=== PATIENT | female | born 1960 | race Caucasian/White ===

== ENCOUNTER 2017-05-03 10:12 | Day surgery (SDC) | payer MEDICAID ==
[~2017-05-03 10:12] MED LIST: Gentamicin 40 MG/ML 2 ML Vial ONE; Midazolam 1 MG/ML 2 ML SDV ONE; Propofol 200 MG/20 ML SDV ONE; fentaNYL 100 MCG/2 ML SDV ONE
[2017-05-03] MEDS ORDERED: Scopolamine 1.5 MG Transdermal Patch TOP SCH (10:45)
[2017-05-03] MEDS ORDERED: ceFAZolin 2 GM in Sodium Chloride 0.9% 50 ML IV ONE (10:45)
[2017-05-03] MEDS ORDERED: Gabapentin 300 MG Cap PO ONE (10:45)
[2017-05-03] MEDS ORDERED: Ketamine 500 MG/5 ML MDV IV SCH (11:00)
[2017-05-03] MEDS ORDERED: Ropivacaine 49.25 ML, Ketorolac 30 MG, EPINEPHrine 0.5 MG, cloNIDine 80 MCG, Sodium Chl... INJECT ONE ×5 (11:00)
[2017-05-03] MEDS: Lactated Ringers 1,000 ML IV SCH ×2 (11:24→22:34)
[2017-05-03] MEDS ORDERED: Povidone-Iodine 10% Soln 118.25 ML Bottle ONE (12:41)
[2017-05-03] MEDS: Tranexamic Acid 840 MG in Sodium Chloride 0.9% 50 ML IV SCH ×2 (13:18→18:54)
[2017-05-03] MEDS ORDERED: Lactated Ringers 1,000 ML ONE (13:22)
[2017-05-03] MEDS ORDERED: Propofol 200 MG/20 ML SDV ONE (13:38)
[2017-05-03] MEDS ORDERED: diphenhydrAMINE 50 MG/ML SDV IVPUSH PRN (14:33)
[2017-05-03] MEDS ORDERED: Naloxone 0.4 MG/ML SDV IVPUSH PRN (14:33)
[2017-05-03] MEDS ORDERED: Ketorolac 30 MG/ML SDV IVPUSH PRN (14:33)
[2017-05-03] MEDS ORDERED: Magnesium Hydroxide 400 MG/5 ML Susp 30 ML Cup PO PRN (14:33)
[2017-05-03] MEDS ORDERED: Bisacodyl 5 MG Tab PO PRN (14:33)
[2017-05-03] MEDS ORDERED: Docusate Sodium 100 MG Cap PO PRN (14:33)
[2017-05-03] MEDS ORDERED: Aluminum Hydroxide/Magnesium Hydroxide/Simethicone Susp 30 ML Cup PO PRN (14:33)
[2017-05-03] MEDS ORDERED: Sennosides 8.6 MG Tab PO PRN (14:33)
[2017-05-03] MEDS ORDERED: Zolpidem 5 MG Tab PO PRN (14:33)
[2017-05-03] MEDS ORDERED: traMADol 50 MG Tab PO PRN (14:33)
[2017-05-03] MEDS ORDERED: oxyCODONE 5 MG Tab PO PRN (14:37)
[2017-05-03] MEDS ORDERED: Acetaminophen 1,000 MG in Premix Bag 1 BAG IV ONE (15:15)
[2017-05-03] MEDS: Diazepam 5 MG Tab PO PRN (16:02)
[2017-05-03] MEDS: Ondansetron 4 MG/2 ML SDV IVPUSH PRN (16:43)
[2017-05-03] MEDS ORDERED: Meperidine PF 75 MG/ML Syringe IM ONE (16:45)
[2017-05-03] MEDS: SCOPOLAMINE PATCH CHECK TOP SCH (18:03)
--- NOTE | 2017-05-03 21:04 | OR ---
DATE OF PROCEDURE: 05/03/2017 PREOPERATIVE DIAGNOSIS: Right knee primary osteoarthritis. POSTOPERATIVE DIAGNOSIS: Right knee primary osteoarthritis. PROCEDURE: Right knee medial compartment arthroplasty. SHAKER REPAIRER: MIQUEL Guerrero. ANESTHESIA: Spinal plus conscious sedation. FLUID: Lactated Ringer solution. ESTIMATED BLOOD LOSS: 25 mL. COMPLICATIONS: None. SPECIMEN: None. DISCHARGE DISPOSITION: Stable to PACU. INSTRUMENTATION: Brooks partial knee medium-size femur, size C right tibial tray and 4 mm thick medium size anatomic meniscal bearing polyethylene. INDICATION FOR THE PROCEDURE: The patient is well known to me. She was seen preoperatively in clinic. She failed nonoperative treatment. Preoperative imaging confirmed the above- mentioned diagnosis. Risks and benefits of the procedure were explained to the patient. Informed consent was obtained. DESCRIPTION OF PROCEDURE: The patient was seen preoperatively by myself, the anesthesia staff in the preop holding area where the operative site was marked. She was brought to the operative suite by the anesthesia staff where spinal anesthetic and conscious sedation was administered. The right thigh had a well-padded tourniquet placed that was placed into a hip echevarria. The left lower extremity was placed into a stirrup. The right lower extremity was then prepped and draped in a sterile manner. Time-out was called identifying the correct patient, correct procedure, the correct site, and antibiotics had been in with an appropriate period of time. The right lower extremity was exsanguinated. Tourniquet was raised to 300 mmHg for 36 minutes and let down during cementing. Incision was made 3 fingerbreadths proximal to the patella down to the level of the tibial tubercle. Bleeding during the case was controlled with Bovie electrocautery as well as an Aqu[employer] unit. Medial parapatellar arthrotomy was made. Infrapatellar fat pad was removed, part of the medial meniscus was removed. Osteotomes were used to clear out the notch. #2 spoon was inserted and found to be a good fit. We then placed the extramedullary tibial guide and then made a vertical saw cut towards the anterior superior iliac spine on the ipsilateral side and then horizontal cut. I removed the proximal tibia in block and it measured a size C. I then removed my guide and then drilled a hole just medial to the medial notch 1 cm anterior to it and then used an awl and then placed an intramedullary beverly up the femur for an intramedullary guide. We then placed our femoral condylar guide and then linked the two together. I then drilled the two holes and then removed all of our instrumentation. I then inserted our posterior condylar guide. A cutting guide tapped it in place and then made my posterior condylar cut. After this had been performed, I used an 0 spigot and reamed and then inserted my size C tibia. This provided good stability with a 4 implant, but very tight even with 1 metal plate. I then replaced the spigot with a #4 spigot and then reamed and then replaced my trial components which provided good stability with a #4 in flexion and extension. We then removed the femoral and tibial component. Over the tibial component, I made a posterior tibial cut for the condyle. I had also reamed the distal anterior femur. I then prepped my tibia. We placed the base plate for the fin cut and held it in place with the spike. I then used our saw-toothed cutter and made a notch for the fen. We then cleaned this notch out. I placed the size C fen tibia base plate and then the final tibial femoral trial with a 4 spacer. This provided excellent stability throughout range of motion. I then removed all of our components and then copiously irrigated with saline. I drilled some holes into the femur for extra fixation. I then cemented my components in place and kept it at 45 degrees with #5 insert until everything had hardened and we let down the tourniquet at 36 minutes. After cement had hardened, we removed any extra cement copiously irrigated with saline and then trialed again with a #4, which provided excellent stability. We removed the trial, irrigated again and then inserted our final 4 polyethylene component. We then closed the capsule with #2 STRATAFIX followed by 3-0 STRATAFIX followed by silvana. The patient was then transferred to our hospital bed and taken to the PACU in stable condition. Azael Tobias DO /[id number]
[2017-05-04] MEDS: Ondansetron 4 MG/2 ML SDV IVPUSH PRN (04:42)
[2017-05-04] MEDS: Diazepam 5 MG Tab PO PRN (07:55)
[2017-05-04] MEDS: Tranexamic Acid 840 MG in Sodium Chloride 0.9% 50 ML IV SCH (08:54)
[2017-05-04] MEDS ORDERED: Aspirin 325 MG Tab.EC PO SCH (09:00)
[2017-05-04] MEDS: SCOPOLAMINE PATCH CHECK TOP SCH (09:00)
[2017-05-04] MEDS ORDERED: Sodium Chloride 0.9% 10 ML Syringe FLUSH SCH (09:00)
--- NOTE | 2017-05-04 09:14 | CR ---
Knee 1V or 2V Rt INDICATION: RIGHT PARTIAL KNEE ARTHROPLASTY. FINDINGS: Postoperative changes medial compartment hemiarthroplasty. Changes of ligamentous reconstru ction. Chondrocalcinosis lateral meniscus. Negative for postoperative purposes.
[2017-05-04 11:50] VITALS: BP 99/66
== END 2017-05-04 14:43 | disposition home or self-care (01) ==
LOC: JP.SDS 10:12 → JP.MS 14:33 → JP.SDS 05-04 14:43
PROVIDERS: ATTEND Orthopaedic Surgery
DX: M17.11 Unilateral primary osteoarthritis, right knee (principal); Z88.2 Allergy status to sulfonamides; Z88.8 Allergy status to other drugs, medicaments and biological substances; Z90.49 Acquired absence of other specified parts of digestive tract; Z98.890 Other specified postprocedural states; Z98.51 Tubal ligation status
CPT/HCPCS: 27446; 36415; 73560; 80053; 85025; 86850; 86900; 86901; 97110; 97161; 97165; A9270; C1713; C1776; J0131; J0171; J0690; J0735; J1580; J1885; J2175; J2250; J2405; J2704; J2795; J3010; J7050; J7120; S0077

== ENCOUNTER → 2017-08-02 | Day surgery (SDC) | payer MEDICAID ==
[~2017-08-02] MED LIST changes: +Acetaminophen/HYDROcodone 325-10 MG Tab ONE; +Acetaminophen/HYDROcodone 325-5 MG Tab ONE; +Acetaminophen/HYDROcodone 325-5 MG Tab PO PRN; +Bupivacaine 0.5%/EPINEPHrine 1:200,000 50 ML MDV ONE; -Gentamicin 40 MG/ML 2 ML Vial ONE; +Lactated Ringers 1,000 ML IV SCH; +Naloxone 0.4 MG/ML SDV ONE; +Povidone-Iodine 10% Soln 118.25 ML Bottle ONE; +ceFAZolin 2 GM in Premix Bag 1 BAG IV ONE
[2017-08-03 13:21] VITALS: BP 125/73
--- NOTE | 2017-08-22 16:48 | OR ---
DATE OF PROCEDURE: 08/02/2017 PREOPERATIVE DIAGNOSIS: Right knee painful hardware. POSTOPERATIVE DIAGNOSIS: Right knee painful hardware. PROCEDURE: Right knee tibial screw removal. EXTRUDER OPERATOR HELPER: MIQUEL James. Physician laundry assistant, Sia Cota NP, played an essential role in assisting in this case, helping to position the patient, retract structures as needed, as well as suturing and cutting sutures as indicated. Her presence improved patient's safety and decreased operative time. ANESTHESIA: General. FLUIDS: Lactated Ringer solution. ESTIMATED BLOOD LOSS: Less than 10 mL. COMPLICATIONS: None. SPECIMEN: None. DISCHARGE DISPOSITION: Stable to PACU. HISTORY AND INDICATIONS FOR THE PROCEDURE: The patient was seen preoperatively by myself in the clinic. We had performed a right medial knee arthroplasty in the past. She continued to have pain with the previous ACL screw. Preoperative imaging showed the screw in the medial proximal tibia. Risks and benefits of the procedure were explained to the patient. Informed consent was obtained. DETAILS OF THE PROCEDURE: The patient was seen preoperatively by myself, the anesthesia staff in the preop holding area where the operative site was marked. She was brought to the operative suite by the anesthesia staff where general anesthesia was administered. A well- padded tourniquet was placed on the right lower extremity. The patient was prepped and draped in sterile manner. Time-out was called identifying the correct patient, the correct procedure, the correct site, and the antibiotics had begun within an appropriate period of time. An incision was made over the palpable proximal tibial screw. I then used a screwdriver to remove the screw and the washer. Minimal bleeding was encountered. Bleeding was present, was controlled with Bovie electrocautery. We then placed 2-0 Vicryl subcutaneous suture and then skin silvana, followed by sterile dressing. The patient was then allowed to awaken from general anesthesia, taken to the PACU in stable condition. Azael Tobias DO /[id number]
== END ==
LOC: JP.SDS 09:20
PROVIDERS: ATTEND Orthopaedic Surgery
DX: T84.84XA Pain due to internal orthopedic prosthetic devices, implants and grafts, initial encounter (principal); Z88.2 Allergy status to sulfonamides; Z88.8 Allergy status to other drugs, medicaments and biological substances; Z79.899 Other long term (current) drug therapy; Z96.651 Presence of right artificial knee joint; Z90.49 Acquired absence of other specified parts of digestive tract; Z98.51 Tubal ligation status
CPT/HCPCS: 20680; A9270; J0690; J2250; J2310; J2704; J3010; J7120

== ENCOUNTER 2017-11-22 08:26 | Day surgery (SDC) | payer MEDICAID ==
[~2017-11-22 08:26] MED LIST changes: -Acetaminophen/HYDROcodone 325-10 MG Tab ONE; -Acetaminophen/HYDROcodone 325-5 MG Tab ONE; -Acetaminophen/HYDROcodone 325-5 MG Tab PO PRN; -Bupivacaine 0.5%/EPINEPHrine 1:200,000 50 ML MDV ONE; -Lactated Ringers 1,000 ML IV SCH; -Midazolam 1 MG/ML 2 ML SDV ONE; -Naloxone 0.4 MG/ML SDV ONE; -Propofol 200 MG/20 ML SDV ONE; -ceFAZolin 2 GM in Premix Bag 1 BAG IV ONE; -fentaNYL 100 MCG/2 ML SDV ONE
[2017-11-22] MEDS ORDERED: Lactated Ringers 1,000 ML IV SCH (08:30)
[2017-11-22] MEDS ORDERED: ceFAZolin 2 GM in Premix Bag 1 BAG IV ONE (09:30)
[2017-11-22] MEDS ORDERED: Midazolam 1 MG/ML 2 ML SDV ONE (09:58)
[2017-11-22] MEDS ORDERED: fentaNYL 100 MCG/2 ML SDV ONE (09:58)
[2017-11-22] MEDS ORDERED: Propofol 200 MG/20 ML SDV ONE (10:09)
[2017-11-22] MEDS ORDERED: Dexamethasone 4 MG/ML SDV ONE (10:10)
[2017-11-22] MEDS ORDERED: Ondansetron 4 MG/2 ML SDV ONE (10:10)
[2017-11-22] MEDS ORDERED: Bupivacaine 0.5%/EPINEPHrine 1:200,000 50 ML MDV ONE (10:19)
[2017-11-22] MEDS ORDERED: Vancomycin 1 GM SDV ONE (10:33)
--- NOTE | 2017-11-22 11:36 | OR ---
DATE OF PROCEDURE: 11/22/2017 PREOPERATIVE DIAGNOSIS: Right knee medial retinacular tear. POSTOPERATIVE DIAGNOSIS: Right knee medial retinacular tear. PROCEDURE PERFORMED: Right knee medial retinacular repair, open. ANESTHESIA: Laryngeal mask airway. FLUID: Lactated Ringer solution. ESTIMATED BLOOD LOSS: Less than 10 mL. COMPLICATIONS: None. SPECIMEN: None. DISCHARGE DISPOSITION: Stable to PACU. INDICATION FOR THE PROCEDURE: The patient is well known to me. We had previously performed a right medial compartment arthroplasty on her knee. She did well, but she was having a little bit of pain. It was felt that she did have a retinacular defect on physical examination. Risks and benefits of the procedure were explained to the patient. Informed consent was obtained. DETAILS OF PROCEDURE: The patient was seen preoperatively by myself, and the Anesthesia staff in the preoperative holding area, where the operative site was marked. She was brought to the operative suite by the Anesthesia staff, where general anesthesia was administered. All extremities were found to be well padded. A well-padded tourniquet was placed on the right thigh. The right lower extremity was then prepped and draped in a sterile manner. Time-out was called identifying the correct patient, the correct procedure, the correct site, and that antibiotics had been begun within appropriate of time. The right lower extremity was exsanguinated. Tourniquet was raised to 300 mmHg for 20 minutes and taken down after closure. An incision was made on the superior aspect of her prior incision, measured approximately 6 to 7 cm. Bleeding was controlled during the case with Bovie electrocautery. I then used Metzenbaums and pickups to go through the defect. I was able to get joint fluid and felt the defect in the retinaculum. I was able to go above and below the retinaculum. I did perform a partial synovectomy during the procedure and then irrigated with Betadine-infused irrigation. After this had been completed, I applied a small amount of vancomycin powder inside the joint. I then approximated the retinaculum with #5 FiberWire with 2 sutures and then did an interlocking suture with #2 FiberWire. I then applied more irrigation and then applied #1 STRATAFIX in a continuous fashion for subcutaneous closure, followed by skin silvana, and followed by a sterile dressing. Tourniquet was let down at this point in time. The patient was then transferred to her hospital bed and taken to the PACU in a stable condition. Azael Tobias DO /[id number]
[2017-11-22] MEDS ORDERED: Acetaminophen/oxyCODONE 325-5 MG Tab PO PRN (12:00)
[2017-11-22] MEDS ORDERED: Ketorolac 60 MG/2 ML SDV IM ONE (12:00)
[2017-11-22] MEDS ORDERED: Meperidine PF 50 MG/ML Syringe IM ONE (14:00)
[2017-11-22 14:50] VITALS: BP 108/65
== END 2017-11-22 15:03 | disposition home or self-care (01) ==
LOC: JP.SDS 08:26
PROVIDERS: ATTEND Orthopaedic Surgery
DX: S83.411A Sprain of medial collateral ligament of right knee, initial encounter (principal); Z88.2 Allergy status to sulfonamides; Z88.5 Allergy status to narcotic agent; Z90.49 Acquired absence of other specified parts of digestive tract; Z96.651 Presence of right artificial knee joint; Z98.51 Tubal ligation status; Z98.890 Other specified postprocedural states
CPT/HCPCS: 27425; A9270; J0690; J1100; J1885; J2175; J2250; J2405; J2704; J3010; J3370

== ENCOUNTER 2020-03-14 06:07 | Inpatient (IN) | payer MEDICAID ==
[2020-03-14] MEDS ORDERED: Lactated Ringers 1,000 ML IV SCH (06:30)
[2020-03-14] MEDS: Nozin Nasal Sanitizer NASBOTH SCH ×3 (06:51→21:48)
[2020-03-14] MEDS ORDERED: Povidone-Iodine 10% Soln 118.25 ML Bottle ONE (06:54)
[2020-03-14] MEDS ORDERED: Propofol 200 MG/20 ML SDV ONE ×5 (07:23→10:19)
[2020-03-14] MEDS ORDERED: fentaNYL 100 MCG/2 ML SDV ONE ×2 (07:23→10:36)
[2020-03-14] MEDS ORDERED: Midazolam 1 MG/ML 2 ML SDV ONE ×2 (07:23→08:59)
[2020-03-14] MEDS ORDERED: ceFAZolin 2 GM in Premix Bag 1 BAG IV ONE (07:45)
[2020-03-14] MEDS ORDERED: Tranexamic Acid 800 MG in Sodium Chloride 0.9% 50 ML IV ONE (07:45)
[2020-03-14] MEDS ORDERED: Tranexamic Acid 1,000 MG in Sodium Chloride 0.9% 50 ML IV ONE (07:45)
[2020-03-14] MEDS: Povidone-Iodine 10% Soln 118.25 ML Bottle ONE ×2 (08:37→10:14)
[2020-03-14] MEDS ORDERED: Lactated Ringers 1,000 ML ONE (09:00)
[2020-03-14] MEDS ORDERED: Acetaminophen/oxyCODONE 325-5 MG Tab PO PRN (11:08)
[2020-03-14] MEDS ORDERED: Magnesium Hydroxide 400 MG/5 ML Susp 30 ML Cup PO PRN (11:08)
[2020-03-14] MEDS ORDERED: ceFAZolin 1 GM in Sodium Chloride 0.9% 50 ML IV SCH ×2 (11:15→12:15)
[2020-03-14] MEDS ORDERED: Gabapentin 300 MG Cap PO PRN (11:15)
[2020-03-14] MEDS ORDERED: Fluticasone Propionate Nasal Spray 16 GM Bottle NAS PRN (11:15)
[2020-03-14] MEDS ORDERED: Ketorolac 30 MG/ML SDV IVPUSH SCH (11:15)
[2020-03-14] MEDS ORDERED: HYDROmorphone 1 MG/ML Syringe IVPUSH PRN (11:17)
[2020-03-14] MEDS ORDERED: Naloxone 0.4 MG/ML SDV IVPUSH PRN (11:18)
[2020-03-14] MEDS ORDERED: diphenhydrAMINE 50 MG/ML SDV IVPUSH PRN (11:18)
[2020-03-14] MEDS ORDERED: diphenhydrAMINE 25 MG Cap PO PRN (11:18)
[2020-03-14] MEDS ORDERED: Meperidine PF 100 MG/ML Syringe IM ONE (11:23)
[2020-03-14] MEDS ORDERED: HYDROmorphone/Normal Saline 15 MG/30 ML PCA IV PRN (11:30)
[2020-03-14] MEDS ORDERED: Tranexamic Acid 800 MG in Sodium Chloride 0.9% 50 ML IV SCH (11:45)
[2020-03-14] MEDS ORDERED: Ondansetron 4 MG/2 ML SDV IVPUSH ONE (11:48)
[2020-03-14] MEDS ORDERED: Acyclovir 200 MG Cap PO PRN (11:52)
[2020-03-14] MEDS: Sodium Chloride 0.9% 1,000 ML IV SCH ×2 (13:11→21:45)
[2020-03-14] MEDS: Ketorolac 30 MG/ML SDV IVPUSH SCH (13:19)
--- NOTE | 2020-03-14 13:39 | CR ---
Knee 1V or 2V Rt CLINICAL HISTORY: Revision of arthroplasty FINDINGS: Patient has a total knee arthroplasty with long intramedullary components. This is a revision of a previous hemiarthroplasty. There are fixation screws and silvana in the femur. Impression: Status post total knee arthroplasty
[2020-03-14] MEDS ORDERED: fentaNYL 100 MCG/2 ML SDV IVPUSH ONE ×2 (14:24→19:20)
[2020-03-14] MEDS: ceFAZolin 1 GM in Premix Bag 1 BAG IV SCH (14:57)
[2020-03-14] MEDS: Ondansetron 4 MG/2 ML SDV IVPUSH PRN (17:33)
[2020-03-14] MEDS: traMADol 50 MG Tab PO PRN (19:21)
[2020-03-14] MEDS: Diazepam 2 MG Tab PO PRN (19:21)
[2020-03-14] MEDS ORDERED: Docusate Sodium 100 MG Cap PO SCH (21:00)
[2020-03-14] MEDS: Docusate Sodium 100 MG Cap PO SCH (21:48)
[2020-03-14] MEDS: Promethazine 6.25 MG in Sodium Chloride 0.9% 50 ML IV PRN (22:51)
[2020-03-15] MEDS: Ketorolac 30 MG/ML SDV IVPUSH SCH ×6 (01:06→23:34)
[2020-03-15] MEDS: Sodium Chloride 0.9% 1,000 ML IV SCH ×3 (06:32→23:28)
[2020-03-15] MEDS: ceFAZolin 1 GM in Premix Bag 1 BAG IV SCH ×3 (08:09)
[2020-03-15] MEDS: Ondansetron 4 MG/2 ML SDV IVPUSH PRN (08:10)
[2020-03-15] MEDS: Nozin Nasal Sanitizer NASBOTH SCH ×2 (08:16→21:33)
[2020-03-15] MEDS: Enoxaparin 30 MG/0.3 ML Syringe SUBCUT SCH (08:25)
[2020-03-15] MEDS ORDERED: Enoxaparin 30 MG/0.3 ML Syringe SUBCUT SCH (09:00)
[2020-03-15] MEDS: Docusate Sodium 100 MG Cap PO SCH ×2 (10:40→21:33)
[2020-03-15] MEDS: Promethazine 6.25 MG in Sodium Chloride 0.9% 50 ML IV PRN (12:29)
[2020-03-15] MEDS ORDERED: HYDROmorphone/Normal Saline 15 MG/30 ML PCA IV SCH (22:00)
[2020-03-16] MEDS: Diazepam 2 MG Tab PO PRN (01:27)
[2020-03-16] MEDS: Sodium Chloride 0.9% 1,000 ML IV SCH (07:33)
[2020-03-16] MEDS: Ketorolac 30 MG/ML SDV IVPUSH SCH (07:36)
[2020-03-16] MEDS: Enoxaparin 30 MG/0.3 ML Syringe SUBCUT SCH ×2 (07:54→08:45)
[2020-03-16] MEDS: Docusate Sodium 100 MG Cap PO SCH ×3 (07:54→20:32)
[2020-03-16] MEDS: Nozin Nasal Sanitizer NASBOTH SCH ×3 (07:54→20:32)
[2020-03-16] MEDS: traMADol 50 MG Tab PO PRN (10:41)
[2020-03-16] MEDS ORDERED: traMADol 50 MG Tab PO PRN (15:41)
[2020-03-16] MEDS: Acetaminophen/HYDROcodone 325-10 MG Tab PO PRN (15:52)
[2020-03-16] MEDS ORDERED: Ondansetron 4 MG Tab.DIS PO PRN (17:14)
[2020-03-16] MEDS: Ibuprofen 800 MG Tab PO SCH (17:21)
[2020-03-17] MEDS: Ibuprofen 800 MG Tab PO SCH ×2 (02:57→07:17)
[2020-03-17] MEDS: Acetaminophen/HYDROcodone 325-10 MG Tab PO PRN ×2 (06:21→11:44)
[2020-03-17 07:35] VITALS: BP 130/67; PULSE 93
[2020-03-17] MEDS: Nozin Nasal Sanitizer NASBOTH SCH (08:08)
[2020-03-17] MEDS: Enoxaparin 30 MG/0.3 ML Syringe SUBCUT SCH (08:08)
[2020-03-17] MEDS: Docusate Sodium 100 MG Cap PO SCH (08:08)
--- NOTE | 2020-03-27 19:54 | OR ---
DATE OF PROCEDURE: 03/14/2020 SURGEON: Anastacio Marcus MD PREOPERATIVE DIAGNOSES: 1. Failed right unicompartmental arthroplasty with extruded polyethylene into popliteal space. 2. Early loosening of femoral component. 3. Large cyst, lateral femoral condyle. PROCEDURES PERFORMED: Revision of right unicompartmental arthroplasty to total knee arthroplasty using Clay LCCK components with a size D tibia, size 12 offset stem, size 4 femur with size 12 straight stem, 5 mm distal lateral augment, 32 mm patella and 12 mm polyethylene. ANESTHESIA: Spinal with sedation. INDICATION: Raven is a 59-year-old female with a history of previous ligamentous reconstruction of her left knee including lateral collateral ligament and ACL. She also underwent a medial unicompartmental arthroplasty using [place] components. Almost two weeks ago, she sustained extrusion of the polyethylene into her popliteal space with minimal exertion. Due to failure of the medial unicompartmental arthroplasty, her history of previous ligamentous reconstruction, evidence of possible loosening of the femoral component and mild degenerative changes noted in the rest of the knee, a decision was made to proceed with conversion of the unicompartmental arthroplasty to a total knee arthroplasty using LCCK component. Risks, benefits, and potential complications of the procedure were discussed. DESCRIPTION OF PROCEDURE: After adequate anesthesia was obtained, the patient was placed supine with a tourniquet about the right upper leg. Right leg was prepped and draped in a sterile fashion. Leg was exsanguinated and tourniquet inflated to 300 mmHg. Previous incision was utilized, was carried down through the subcutaneous tissues and hemostasis obtained with electrocautery. Medial parapatellar arthrotomy was performed through the previous arthrotomy and stitches were removed. Medial unicompartmental arthroplasty was exposed. Using combination of osteotomes, the femoral component was removed without difficulty and minimal bone loss. Tibial component was also removed with combination of osteotomes and again removed with minimal bone loss. This allowed access to the popliteal space. The polyethylene was maneuvered up into position and removed with a Dominique. Posterior aspect of the patella was resected with an oscillating saw and showed moderate degenerative changes. Intramedullary canal of the femur was then drilled and reamers were then taken up to 12 mm, which provided a fixation within the canal. Distal cutting jig was then placed over the last reamer and distal femoral cut was made. The femur was sized and cutting jig was then again secured over the reamer completing anterior, posterior and chamfer cuts. Box cut was also made for a constrained component. Femoral trial was then assembled including a 5 mm distal augment. This was then placed and tapped into position and found to have a very good fit. The trial was then removed. Attention was then turned to the tibia, which was drilled and reamed again up to a size 12 mm. Last reamer was left in place and used for the proximal tibial cut. This was made level with the previous medial cut. This was sized and using the offset guide, secured in position with pins. Proximal portion was over drilled with the reamer and fin cuts were then made. Femoral and tibial trials were then placed with a 12-mm poly providing good balance in flexion and extension, and the patella was drilled for a 32-mm component, which tracked just slightly lateral and a lateral release was performed. The bone was then thoroughly irrigated with pulse lavage. Components were dried and components were cemented in place. In the process of cementing in the tibial component, it was noted that the tibia wanted to rotate internally and this component was removed and the cement was removed. The fins were recut in the tibia to ensure the component seated in good rotational position. The component was then cemented in place once again. Both components were cemented and held in position with a 12-mm insert as the cement cured. During the process of making the femoral cuts, a large cyst was noted in the lateral femoral condyle. This included the majority of the volume of the condyle. Cyst lining was removed with a curette. This was then roughened and multiple drill holes were made. The bone which was resected from the tibia and femur was then morselized and packed into the cyst. This provided very good fill and the femoral component was cemented over top of this. Once the cement had cured, the trial was removed. The 12 mm polyethylene was positioned and secured with the locking screw. The knee was taken through range of motion, had full extension and flexion easily to 120 degrees, and patella tracked very well. Knee was irrigated with a pulse lavage, followed by irrigation with a dilute Betadine solution and a final irrigation with pulse lavage. The arthrotomy was then closed with a #2 Ethibond. Skin was closed with 2-0 Vicryl and a running 3-0 Monocryl. Steri-Strips were applied. Light compressive dressing was then applied. The patient tolerated procedure very well. There were no complications. She was taken from the operating room in stable condition. Anastacio Marcus MD /[id number] MTDD
--- NOTE | 2020-03-28 17:13 | PCM.SURGPN ---
- General Info Date of Service: 03/15/20 Date of Surgery/Procedure: 03/14/20 POD#: 1 Post-Op Diagnosis: S/P conversion of unicompartmental arthroplaasty to total knee arthroplasty Functional Status: Reports: Ambulating - Review of Systems General: Reports: No Symptoms HEENT: Reports: No Symptoms Pulmonary: Reports: No Symptoms Cardiovascular: Reports: No Symptoms Gastrointestinal: Reports: Nausea, Vomiting Genitourinary: Reports: No Symptoms Musculoskeletal: Reports: Leg Pain Skin: Reports: No Symptoms Neurological: Reports: No Symptoms Psychiatric: Reports: No Symptoms - Patient Data Vitals - Most Recent: Last Vital Signs Temp 37.3 C 03/17/20 07:35 Pulse 93 03/17/20 07:35 Resp 16 03/17/20 07:35 BP 130/67 03/17/20 07:35 Pulse Ox 94 L 03/17/20 07:35 Weight - Most Recent: 84.595 kg Med Orders - Current: Current Medications Discontinued Medications Hydrocodone Bitart/Acetaminophen (Proctor 325-10 Mg) 1 - 2 tab PO Q4H PRN PRN Reason: Pain (moderate 4-6) Last Admin: 03/17/20 11:44 Dose: 1 tab Documented by: Acyclovir (Zovirax) 400 mg PO DAILY PRN PRN Reason: COLD SORE Bandage/Support Products ( Nasal Administrative Services Specialist) 1 applic NASBOTH BID [facility] Last Admin: 03/17/20 08:08 Dose: 1 applic Documented by: Diazepam (Valium) 2 mg PO TID PRN PRN Reason: Muscle Spasm Last Admin: 03/16/20 01:27 Dose: 2 mg Documented by: Diphenhydramine HCl (Benadryl) 25 mg IVPUSH Q6H PRN PRN Reason: Itching Diphenhydramine HCl (Benadryl) 25 mg PO Q6H PRN PRN Reason: Itching Last Admin: 03/16/20 10:41 Dose: 25 mg Documented by: Docusate Sodium (Colace) 100 mg PO BID LOIS Docusate Sodium (Colace) 100 mg PO BID [facility] Last Admin: 03/17/20 08:08 Dose: 100 mg Documented by: Enoxaparin Sodium (Lovenox) 30 mg SUBCUT DAILY [facility] Enoxaparin Sodium (Lovenox) 30 mg SUBCUT DAILY [facility] Last Admin: 03/17/20 08:08 Dose: 30 mg Documented by: Fentanyl (Sublimaze) Confirm Administered Dose 100 mcg .ROUTE .STK-MED ONE Stop: 03/14/20 07:24 Fentanyl (Sublimaze) Confirm Administered Dose 100 mcg .ROUTE .STK-MED ONE Stop: 03/14/20 10:37 Fentanyl (Sublimaze) 50 mcg IVPUSH ONETIME ONE Stop: 03/14/20 14:25 Last Admin: 03/14/20 14:56 Dose: 50 mcg Documented by: Fentanyl (Sublimaze) 50 mcg IVPUSH ONETIME ONE Stop: 03/14/20 19:21 Last Admin: 03/15/20 03:41 Dose: Not Given Documented by: Fluticasone Propionate (Flonase) 0 gm BRAD DAILY PRN PRN Reason: Other Gabapentin (Neurontin) 300 mg PO DAILY PRN PRN Reason: Other Hydromorphone HCl (Dilaudid) 1 mg IVPUSH Q1H PRN PRN Reason: Breakthrough Pain Hydromorphone HCl (Dilaudid Twister In 15 Mg In Ns 30 Ml) 0 mg IV ASDIRECTED PRN; Protocol PRN Reason: PAIN Last Admin: 03/14/20 13:12 Dose: 15 mg Documented by: Hydromorphone HCl (Dilaudid Twister In 15 Mg In Ns 30 Ml) 15 mg IV ASDIRECTED [facility]; Protocol Lactated Ringer's (Ringers, Lactated) 1,000 mls @ 75 mls/hr IV ASDIRECTED [facility] Last Admin: 03/14/20 06:25 Dose: 75 mls/hr Documented by: Tranexamic Acid 800 mg/ Sodium (Chloride) 58 mls @ 232 mls/hr IV ONETIME ONE Stop: 03/14/20 07:59 Last Admin: 03/14/20 07:55 Dose: 232 mls/hr Documented by: Tranexamic Acid 800 mg/ Sodium (Chloride) 58 mls @ 232 mls/hr IV ASDIRECTED [facility] Stop: 03/14/20 23:00 Cefazolin Sodium/Dextrose 2 gm (/ Premix) 50 mls @ 100 mls/hr IV ONETIME ONE Stop: 03/14/20 08:14 Last Admin: 03/14/20 07:46 Dose: 100 mls/hr Documented by: Lactated Ringer's (Ringers, Lactated) Confirm Administered Dose 1,000 mls @ as directed .ROUTE .STK-MED ONE Stop: 03/14/20 09:01 Sodium Chloride (Normal Saline) 1,000 mls @ 125 mls/hr IV ASDIRECTED [facility] Last Admin: 03/16/20 07:33 Dose: 125 mls/hr Documented by: Cefazolin Sodium/Dextrose 1 gm (/ Premix) 50 mls @ 100 mls/hr IV Q8H [facility] Stop: 03/15/20 07:29 Last Admin: 03/15/20 08:09 Dose: 100 mls/hr Documented by: Promethazine HCl 6.25 mg/ (Sodium Chloride) 50.25 mls @ 200 mls/hr IV Q6H PRN PRN Reason: Nausea/Vomiting Last Admin: 03/15/20 12:29 Dose: 200 mls/hr Documented by: Ibuprofen (Motrin) 800 mg PO Q8H [facility] Last Admin: 03/17/20 07:17 Dose: Not Given Documented by: Ketorolac Tromethamine (Toradol) 30 mg IVPUSH Q8H [facility] Stop: 03/16/20 05:01 Last Admin: 03/15/20 14:27 Dose: Not Given Documented by: Ketorolac Tromethamine (Toradol) 30 mg IVPUSH Q8H [facility] Stop: 03/16/20 08:01 Last Admin: 03/16/20 07:36 Dose: 30 mg Documented by: Magnesium Hydroxide (Milk Of Magnesia) 30 ml PO BID PRN PRN Reason: Constipation Meperidine HCl (Demerol) 100 mg IM ONETIME ONE Stop: 03/14/20 11:24 Last Admin: 03/14/20 11:32 Dose: 100 mg Documented by: Midazolam HCl (Versed 1 Mg/Ml) Confirm Administered Dose 2 mg .ROUTE .STK-MED ONE Stop: 03/14/20 07:24 Midazolam HCl (Versed 1 Mg/Ml) Confirm Administered Dose 2 mg .ROUTE .STK-MED ONE Stop: 03/14/20 09:00 Naloxone HCl (Narcan) 0.04 mg IVPUSH Q3M PRN PRN Reason: Respiratory Depression Ondansetron HCl (Zofran) 4 mg IVPUSH Q6H PRN PRN Reason: Nausea/Vomiting Last Admin: 03/15/20 08:10 Dose: 4 mg Documented by: Ondansetron HCl (Zofran) 4 mg IVPUSH ONETIME ONE Stop: 03/14/20 11:49 Last Admin: 03/14/20 11:53 Dose: 4 mg Documented by: Ondansetron HCl (Zofran Odt) 4 mg PO Q6H PRN PRN Reason: Nausea/Vomiting Last Admin: 03/16/20 17:24 Dose: 4 mg Documented by: Oxycodone/Acetaminophen (Percocet 325-5 Mg) 1 - 2 tab PO Q4H PRN PRN Reason: Pain (moderate 4-6) Last Admin: 03/14/20 12:44 Dose: 2 tab Documented by: Povidone Iodine (Betadine 10% Soln) Confirm Administered Dose 1 ml .ROUTE .STK- MED ONE Stop: 03/14/20 06:55 Povidone Iodine (Betadine 10% Soln) Confirm Administered Dose 1 ml .ROUTE .STK- MED ONE Stop: 03/14/20 06:56 Last Admin: 03/14/20 10:14 Dose: 30 ml Documented by: Propofol (Diprivan 20 Ml) Confirm Administered Dose 200 mg .ROUTE .STK-MED ONE Stop: 03/14/20 07:24 Propofol (Diprivan 20 Ml) Confirm Administered Dose 200 mg .ROUTE .STK-MED ONE Stop: 03/14/20 08:34 Propofol (Diprivan 20 Ml) Confirm Administered Dose 200 mg .ROUTE .STK-MED ONE Stop: 03/14/20 09:10 Propofol (Diprivan 20 Ml) Confirm Administered Dose 200 mg .ROUTE .STK-MED ONE Stop: 03/14/20 09:45 Propofol (Diprivan 20 Ml) Confirm Administered Dose 200 mg .ROUTE .STK-MED ONE Stop: 03/14/20 10:20 Tramadol HCl (Ultram) 100 mg PO Q8H PRN PRN Reason: Pain (severe 7-10) Last Admin: 03/16/20 10:41 Dose: 100 mg Documented by: Tramadol HCl (Ultram) 100 mg PO Q4H PRN PRN Reason: Pain (mild 1-3) - Exam Wound/Incisions: Dressing Dry and Intact General: Alert, Oriented HEENT: Pupils Equal Neck: Supple Lungs: Clear to Auscultation, Normal Respiratory Effort Cardiovascular: Regular Rate, Regular Rhythm GI/Abdominal Exam: Normal Bowel Sounds, Soft, Non-Tender Extremities: Leg Pain, Limited Range of Motion Skin: Warm, Dry Neurological: No New Focal Deficit Psy/Mental Status: Alert, Normal Affect, Normal Mood Sepsis Event Note - Evaluation Sepsis Screening Result: No Definite Risk - Problem List & Annotations (1) Status post revision of total knee SNOMED Code(s): 6935755737134, 08811436, 6751332474848 Code(s): Z96.659 - PRESENCE OF UNSPECIFIED ARTIFICIAL KNEE JOINT Status: Acute Qualifiers: Laterality: right Qualified Code(s): Z96.651 - Presence of right artificial knee joint (2) Status post right knee surgery SNOMED Code(s): 441714456 Code(s): Z98.890 - OTHER SPECIFIED POSTPROCEDURAL STATES Status: Acute Annotation/Comment:: Revision of total knee (3) Failed arthroplasty SNOMED Code(s): 507599629 Code(s): T84.019A - BROKEN INTERNAL JOINT PROSTHESIS, UNSP SITE, INIT ENCNTR Status: Acute Qualifiers: Encounter type: subsequent encounter Qualified Code(s): T84.019D - Broken internal joint prosthesis, unspecified site, subsequent encounter - Problem List Review Problem List Initiated/Reviewed/Updated: Yes - Assessment Assessment (Free Text/Narrative):: Significant difficulty with nausea and pain control, has been up in room - Plan Plan (Free Text/Narrative):: Try to adjust meds to control pain and get rid of nausea, PT as able
--- NOTE | 2020-03-28 17:22 | PCM.SURGPN ---
- General Info Date of Service: 03/16/20 Date of Surgery/Procedure: 03/14/20 POD#: 2 Functional Status: Reports: Ambulating, Urinating - Review of Systems General: Reports: No Symptoms HEENT: Reports: No Symptoms Pulmonary: Reports: No Symptoms Cardiovascular: Reports: No Symptoms Gastrointestinal: Reports: Nausea Musculoskeletal: Reports: Leg Pain Skin: Reports: No Symptoms Neurological: Reports: No Symptoms Psychiatric: Reports: No Symptoms - Patient Data Vitals - Most Recent: Last Vital Signs Temp 37.3 C 03/17/20 07:35 Pulse 93 03/17/20 07:35 Resp 16 03/17/20 07:35 BP 130/67 03/17/20 07:35 Pulse Ox 94 L 03/17/20 07:35 Weight - Most Recent: 84.595 kg Med Orders - Current: Current Medications Discontinued Medications Hydrocodone Bitart/Acetaminophen ([place] 325-10 Mg) 1 - 2 tab PO Q4H PRN PRN Reason: Pain (moderate 4-6) Last Admin: 03/17/20 11:44 Dose: 1 tab Documented by: Acyclovir (Zovirax) 400 mg PO DAILY PRN PRN Reason: COLD SORE Bandage/Support Products ( Nasal Linotype Operator) 1 applic NASBOTH BID [facility] Last Admin: 03/17/20 08:08 Dose: 1 applic Documented by: Diazepam (Valium) 2 mg PO TID PRN PRN Reason: Muscle Spasm Last Admin: 03/16/20 01:27 Dose: 2 mg Documented by: Diphenhydramine HCl (Benadryl) 25 mg IVPUSH Q6H PRN PRN Reason: Itching Diphenhydramine HCl (Benadryl) 25 mg PO Q6H PRN PRN Reason: Itching Last Admin: 03/16/20 10:41 Dose: 25 mg Documented by: Docusate Sodium (Colace) 100 mg PO BID [facility] Docusate Sodium (Colace) 100 mg PO BID [facility] Last Admin: 03/17/20 08:08 Dose: 100 mg Documented by: Enoxaparin Sodium (Lovenox) 30 mg SUBCUT DAILY [facility] Enoxaparin Sodium (Lovenox) 30 mg SUBCUT DAILY [facility] Last Admin: 03/17/20 08:08 Dose: 30 mg Documented by: Fentanyl (Sublimaze) Confirm Administered Dose 100 mcg .ROUTE .STK-MED ONE Stop: 03/14/20 07:24 Fentanyl (Sublimaze) Confirm Administered Dose 100 mcg .ROUTE .STK-MED ONE Stop: 03/14/20 10:37 Fentanyl (Sublimaze) 50 mcg IVPUSH ONETIME ONE Stop: 03/14/20 14:25 Last Admin: 03/14/20 14:56 Dose: 50 mcg Documented by: Fentanyl (Sublimaze) 50 mcg IVPUSH ONETIME ONE Stop: 03/14/20 19:21 Last Admin: 03/15/20 03:41 Dose: Not Given Documented by: Fluticasone Propionate (Flonase) 0 gm BRAD DAILY PRN PRN Reason: Other Gabapentin (Neurontin) 300 mg PO DAILY PRN PRN Reason: Other Hydromorphone HCl (Dilaudid) 1 mg IVPUSH Q1H PRN PRN Reason: Breakthrough Pain Hydromorphone HCl (Dilaudid Animal Handler 15 Mg In Ns 30 Ml) 0 mg IV ASDIRECTED PRN; Protocol PRN Reason: PAIN Last Admin: 03/14/20 13:12 Dose: 15 mg Documented by: Hydromorphone HCl (Dilaudid Animal Handler 15 Mg In Ns 30 Ml) 15 mg IV ASDIRECTED [facility]; Protocol Lactated Ringer's (Ringers, Lactated) 1,000 mls @ 75 mls/hr IV ASDIRECTED [facility] Last Admin: 03/14/20 06:25 Dose: 75 mls/hr Documented by: Tranexamic Acid 800 mg/ Sodium (Chloride) 58 mls @ 232 mls/hr IV ONETIME ONE Stop: 03/14/20 07:59 Last Admin: 03/14/20 07:55 Dose: 232 mls/hr Documented by: Tranexamic Acid 800 mg/ Sodium (Chloride) 58 mls @ 232 mls/hr IV ASDIRECTED [facility] Stop: 03/14/20 23:00 Cefazolin Sodium/Dextrose 2 gm (/ Premix) 50 mls @ 100 mls/hr IV ONETIME ONE Stop: 03/14/20 08:14 Last Admin: 03/14/20 07:46 Dose: 100 mls/hr Documented by: Lactated Ringer's (Ringers, Lactated) Confirm Administered Dose 1,000 mls @ as directed .ROUTE .STK-MED ONE Stop: 03/14/20 09:01 Sodium Chloride (Normal Saline) 1,000 mls @ 125 mls/hr IV ASDIRECTED [facility] Last Admin: 03/16/20 07:33 Dose: 125 mls/hr Documented by: Cefazolin Sodium/Dextrose 1 gm (/ Premix) 50 mls @ 100 mls/hr IV Q8H [facility] Stop: 03/15/20 07:29 Last Admin: 03/15/20 08:09 Dose: 100 mls/hr Documented by: Promethazine HCl 6.25 mg/ (Sodium Chloride) 50.25 mls @ 200 mls/hr IV Q6H PRN PRN Reason: Nausea/Vomiting Last Admin: 03/15/20 12:29 Dose: 200 mls/hr Documented by: Ibuprofen (Motrin) 800 mg PO Q8H [facility] Last Admin: 03/17/20 07:17 Dose: Not Given Documented by: Ketorolac Tromethamine (Toradol) 30 mg IVPUSH Q8H [facility] Stop: 03/16/20 05:01 Last Admin: 03/15/20 14:27 Dose: Not Given Documented by: Ketorolac Tromethamine (Toradol) 30 mg IVPUSH Q8H [facility] Stop: 03/16/20 08:01 Last Admin: 03/16/20 07:36 Dose: 30 mg Documented by: Magnesium Hydroxide (Milk Of Magnesia) 30 ml PO BID PRN PRN Reason: Constipation Meperidine HCl (Demerol) 100 mg IM ONETIME ONE Stop: 03/14/20 11:24 Last Admin: 03/14/20 11:32 Dose: 100 mg Documented by: Midazolam HCl (Versed 1 Mg/Ml) Confirm Administered Dose 2 mg .ROUTE .STK-MED ONE Stop: 03/14/20 07:24 Midazolam HCl (Versed 1 Mg/Ml) Confirm Administered Dose 2 mg .ROUTE .STK-MED ONE Stop: 03/14/20 09:00 Naloxone HCl (Narcan) 0.04 mg IVPUSH Q3M PRN PRN Reason: Respiratory Depression Ondansetron HCl (Zofran) 4 mg IVPUSH Q6H PRN PRN Reason: Nausea/Vomiting Last Admin: 03/15/20 08:10 Dose: 4 mg Documented by: Ondansetron HCl (Zofran) 4 mg IVPUSH ONETIME ONE Stop: 03/14/20 11:49 Last Admin: 03/14/20 11:53 Dose: 4 mg Documented by: Ondansetron HCl (Zofran Odt) 4 mg PO Q6H PRN PRN Reason: Nausea/Vomiting Last Admin: 03/16/20 17:24 Dose: 4 mg Documented by: Oxycodone/Acetaminophen (Percocet 325-5 Mg) 1 - 2 tab PO Q4H PRN PRN Reason: Pain (moderate 4-6) Last Admin: 03/14/20 12:44 Dose: 2 tab Documented by: Povidone Iodine (Betadine 10% Soln) Confirm Administered Dose 1 ml .ROUTE .STK- MED ONE Stop: 03/14/20 06:55 Povidone Iodine (Betadine 10% Soln) Confirm Administered Dose 1 ml .ROUTE .STK- MED ONE Stop: 03/14/20 06:56 Last Admin: 03/14/20 10:14 Dose: 30 ml Documented by: Propofol (Diprivan 20 Ml) Confirm Administered Dose 200 mg .ROUTE .STK-MED ONE Stop: 03/14/20 07:24 Propofol (Diprivan 20 Ml) Confirm Administered Dose 200 mg .ROUTE .STK-MED ONE Stop: 03/14/20 08:34 Propofol (Diprivan 20 Ml) Confirm Administered Dose 200 mg .ROUTE .STK-MED ONE Stop: 03/14/20 09:10 Propofol (Diprivan 20 Ml) Confirm Administered Dose 200 mg .ROUTE .STK-MED ONE Stop: 03/14/20 09:45 Propofol (Diprivan 20 Ml) Confirm Administered Dose 200 mg .ROUTE .STK-MED ONE Stop: 03/14/20 10:20 Tramadol HCl (Ultram) 100 mg PO Q8H PRN PRN Reason: Pain (severe 7-10) Last Admin: 03/16/20 10:41 Dose: 100 mg Documented by: Tramadol HCl (Ultram) 100 mg PO Q4H PRN PRN Reason: Pain (mild 1-3) - Exam Wound/Incisions: Dressing Dry and Intact General: Alert, Oriented HEENT: Pupils Equal Neck: Supple Lungs: Clear to Auscultation, Normal Respiratory Effort Cardiovascular: Regular Rate, Regular Rhythm GI/Abdominal Exam: Normal Bowel Sounds, Soft, Non-Tender Extremities: Joint Swelling, Limited Range of Motion Skin: Warm, Dry Neurological: No New Focal Deficit Psy/Mental Status: Alert, Normal Affect, Normal Mood Sepsis Event Note - Evaluation Sepsis Screening Result: No Definite Risk - Problem List & Annotations (1) Status post revision of total knee SNOMED Code(s): 8387071599276, 41688892, 3484347257946 Code(s): Z96.659 - PRESENCE OF UNSPECIFIED ARTIFICIAL KNEE JOINT Status: Acute Qualifiers: Laterality: right Qualified Code(s): Z96.651 - Presence of right artificial knee joint (2) Status post right knee surgery SNOMED Code(s): 593433485 Code(s): Z98.890 - OTHER SPECIFIED POSTPROCEDURAL STATES Status: Acute Annotation/Comment:: Revision of total knee (3) Failed arthroplasty SNOMED Code(s): 607459439 Code(s): T84.019A - BROKEN INTERNAL JOINT PROSTHESIS, UNSP SITE, INIT ENCNTR Status: Acute Qualifiers: Encounter type: subsequent encounter Qualified Code(s): T84.019D - Broken internal joint prosthesis, unspecified site, subsequent encounter - Problem List Review Problem List Initiated/Reviewed/Updated: Yes - Assessment Assessment (Free Text/Narrative):: Pain better controlled, nausea improved off Dilaudid, has been up in halls, doing better with PT - Plan Plan (Free Text/Narrative):: Dressing changed, incision looks good, arrangements being made for discharge
--- NOTE | 2020-03-28 17:29 | PCM.DCSUM1 ---
Discharge Summary - Hospital Course HPI Initial Comments: 59 year old female with history of Bandera medial unicompartmental arthroplasty recently felt a pop with onset off pain in the posterior knee. X-ray shows extrusion of the polyethylene into the popliteal space and possible loosening of the femoral component. Plan revision to total knee. Diagnosis: Stroke: No Modified Murray Scale: No Symptoms at All Modified Murray Scale Score: 0 - Discharge Data Discharge Date: 03/17/20 Discharge Disposition: Home, Self-Care 01 Condition: Good - Referral to Home Health Date of Face to Face Encounter: 03/17/20 Primary Care Physician: PCP None - Discharge Diagnosis/Problem(s) (1) Status post revision of total knee SNOMED Code(s): 0709929415858, 70510184, 9727515084546 ICD Code: Z96.659 - PRESENCE OF UNSPECIFIED ARTIFICIAL KNEE JOINT Status: Acute Qualifiers: Laterality: right Qualified Code(s): Z96.651 - Presence of right artificial knee joint (2) Status post right knee surgery SNOMED Code(s): 656124617 ICD Code: Z98.890 - OTHER SPECIFIED POSTPROCEDURAL STATES Status: Acute Problem Details: Revision of total knee (3) Failed arthroplasty SNOMED Code(s): 134368483 ICD Code: T84.019A - BROKEN INTERNAL JOINT PROSTHESIS, UNSP SITE, INIT ENCNTR Status: Acute Qualifiers: Encounter type: subsequent encounter Qualified Code(s): T84.019D - Broken internal joint prosthesis, unspecified site, subsequent encounter - Patient Summary/Data Operative Procedure(s) Performed: Conversion of unicompartmental to total knee arthroplasty Consults: Consultations 03/14/20 11:08 Consult to Case Management/Corporation Pilot [CONS] Routine Comment: Physician Instructions: Service(s) to be Consulted: Case Management Reason for Consult: Plan for Discharge PT Evaluation and Treatment [CONS] Routine Please Evaluate and Treat. PT Reason for Consult: Post op Ortho Surgery Special Instructions: Ambulation and ROM This query below is only for informational purposes and is not editable. PT Evaluation and Treatment [CONS] Routine Please Evaluate and Treat. PT Reason for Consult: Post op Ortho Surgery Knee Pending Discharge: Yes, 1- 2 days Special Instructions: Schedule first outpatient PT appointment in 3-5 day post discharge. This query below is only for informational purposes and is not editable. Hospital Course: Admitted for revision knee. Tolerated the procedure without complication. Had difficulty with nausea and pain control. for the first two days. Did better after discontinuation of the Dilaudid. Was able to progress with PT and was ambulating independently by POD 3. Dressing changed prior to discharge. Follow up in two weeks. - Patient Instructions Diet: Usual Diet as Tolerated Activity: Apply Ice, As Tolerated, Full Weight Bearing Driving: Do Not Drive Showering/Bathing: May Shower Wound/Incision Care: Keep Operative Site/Wound Site Clean and Dry Notify Provider of: Fever, Increased Pain, Swelling and Redness, Drainage, Nausea and/or Vomiting Other/Special Instructions: Aspirin 325mg by mouth daily - Discharge Plan *PRESCRIPTION DRUG MONITORING PROGRAM REVIEWED*: No *COPY OF PRESCRIPTION DRUG MONITORING REPORT IN PATIENT MICHAEL: No Home Medications: Home Meds Acyclovir 400 mg PO DAILY PRN 03/10/20 [History] Gabapentin [Neurontin] 300 mg PO DAILY PRN 03/10/20 [History] Fluticasone Propionate [Flonase] 2 spray NS DAILY PRN 03/12/20 [History] ondansetron HCL [Zofran] 4 mg PO Q6HR PRN #24 tablet 03/19/20 [Rx] traMADol [Ultram] 50 mg PO Q6H PRN #28 tab 03/25/20 [Rx] Other Amb Orders: PT Evaluation and Treatment [CONS] Time Frame: 3 Days, Location: None Selected Oxygen Therapy Mode: Room Air Referrals: Anastacio Marcus MD [Physician] - 03/25/20 3:15 pm - Discharge Summary/Plan Comment DC Time >30 min.: No - Patient Data Vitals - Most Recent: Last Vital Signs Temp 37.3 C 03/17/20 07:35 Pulse 93 03/17/20 07:35 Resp 16 03/17/20 07:35 BP 130/67 03/17/20 07:35 Pulse Ox 94 L 03/17/20 07:35 Weight - Most Recent: 84.595 kg Med Orders - Current: Current Medications Discontinued Medications Hydrocodone Bitart/Acetaminophen ([place] 325-10 Mg) 1 - 2 tab PO Q4H PRN PRN Reason: Pain (moderate 4-6) Last Admin: 03/17/20 11:44 Dose: 1 tab Documented by: Acyclovir (Zovirax) 400 mg PO DAILY PRN PRN Reason: COLD SORE Bandage/Support Products ( Nasal Filter Cleaner) 1 applic NASBOTH BID [facility] Last Admin: 03/17/20 08:08 Dose: 1 applic Documented by: Diazepam (Valium) 2 mg PO TID PRN PRN Reason: Muscle Spasm Last Admin: 03/16/20 01:27 Dose: 2 mg Documented by: Diphenhydramine HCl (Benadryl) 25 mg IVPUSH Q6H PRN PRN Reason: Itching Diphenhydramine HCl (Benadryl) 25 mg PO Q6H PRN PRN Reason: Itching Last Admin: 03/16/20 10:41 Dose: 25 mg Documented by: Docusate Sodium (Colace) 100 mg PO BID [facility] Docusate Sodium (Colace) 100 mg PO BID [facility] Last Admin: 03/17/20 08:08 Dose: 100 mg Documented by: Enoxaparin Sodium (Lovenox) 30 mg SUBCUT DAILY [facility] Enoxaparin Sodium (Lovenox) 30 mg SUBCUT DAILY [facility] Last Admin: 03/17/20 08:08 Dose: 30 mg Documented by: Fentanyl (Sublimaze) Confirm Administered Dose 100 mcg .ROUTE .STK-MED ONE Stop: 03/14/20 07:24 Fentanyl (Sublimaze) Confirm Administered Dose 100 mcg .ROUTE .STK-MED ONE Stop: 03/14/20 10:37 Fentanyl (Sublimaze) 50 mcg IVPUSH ONETIME ONE Stop: 03/14/20 14:25 Last Admin: 03/14/20 14:56 Dose: 50 mcg Documented by: Fentanyl (Sublimaze) 50 mcg IVPUSH ONETIME ONE Stop: 03/14/20 19:21 Last Admin: 03/15/20 03:41 Dose: Not Given Documented by: Fluticasone Propionate (Flonase) 0 gm BRAD DAILY PRN PRN Reason: Other Gabapentin (Neurontin) 300 mg PO DAILY PRN PRN Reason: Other Hydromorphone HCl (Dilaudid) 1 mg IVPUSH Q1H PRN PRN Reason: Breakthrough Pain Hydromorphone HCl (Dilaudid Welding Machine Operator Electroslag 15 Mg In Ns 30 Ml) 0 mg IV ASDIRECTED PRN; Protocol PRN Reason: PAIN Last Admin: 03/14/20 13:12 Dose: 15 mg Documented by: Hydromorphone HCl (Dilaudid Welding Machine Operator Electroslag 15 Mg In Ns 30 Ml) 15 mg IV ASDIRECTED [facility]; Protocol Lactated Ringer's (Ringers, Lactated) 1,000 mls @ 75 mls/hr IV ASDIRECTED [facility] Last Admin: 03/14/20 06:25 Dose: 75 mls/hr Documented by: Tranexamic Acid 800 mg/ Sodium (Chloride) 58 mls @ 232 mls/hr IV ONETIME ONE Stop: 03/14/20 07:59 Last Admin: 03/14/20 07:55 Dose: 232 mls/hr Documented by: Tranexamic Acid 800 mg/ Sodium (Chloride) 58 mls @ 232 mls/hr IV ASDIRECTED [facility] Stop: 03/14/20 23:00 Cefazolin Sodium/Dextrose 2 gm (/ Premix) 50 mls @ 100 mls/hr IV ONETIME ONE Stop: 03/14/20 08:14 Last Admin: 03/14/20 07:46 Dose: 100 mls/hr Documented by: Lactated Ringer's (Ringers, Lactated) Confirm Administered Dose 1,000 mls @ as directed .ROUTE .STK-MED ONE Stop: 03/14/20 09:01 Sodium Chloride (Normal Saline) 1,000 mls @ 125 mls/hr IV ASDIRECTED [facility] Last Admin: 03/16/20 07:33 Dose: 125 mls/hr Documented by: Cefazolin Sodium/Dextrose 1 gm (/ Premix) 50 mls @ 100 mls/hr IV Q8H [facility] Stop: 03/15/20 07:29 Last Admin: 03/15/20 08:09 Dose: 100 mls/hr Documented by: Promethazine HCl 6.25 mg/ (Sodium Chloride) 50.25 mls @ 200 mls/hr IV Q6H PRN PRN Reason: Nausea/Vomiting Last Admin: 03/15/20 12:29 Dose: 200 mls/hr Documented by: Ibuprofen (Motrin) 800 mg PO Q8H [facility] Last Admin: 03/17/20 07:17 Dose: Not Given Documented by: Ketorolac Tromethamine (Toradol) 30 mg IVPUSH Q8H [facility] Stop: 03/16/20 05:01 Last Admin: 03/15/20 14:27 Dose: Not Given Documented by: Ketorolac Tromethamine (Toradol) 30 mg IVPUSH Q8H [facility] Stop: 03/16/20 08:01 Last Admin: 03/16/20 07:36 Dose: 30 mg Documented by: Magnesium Hydroxide (Milk Of Magnesia) 30 ml PO BID PRN PRN Reason: Constipation Meperidine HCl (Demerol) 100 mg IM ONETIME ONE Stop: 03/14/20 11:24 Last Admin: 03/14/20 11:32 Dose: 100 mg Documented by: Midazolam HCl (Versed 1 Mg/Ml) Confirm Administered Dose 2 mg .ROUTE .STK-MED ONE Stop: 03/14/20 07:24 Midazolam HCl (Versed 1 Mg/Ml) Confirm Administered Dose 2 mg .ROUTE .STK-MED ONE Stop: 03/14/20 09:00 Naloxone HCl (Narcan) 0.04 mg IVPUSH Q3M PRN PRN Reason: Respiratory Depression Ondansetron HCl (Zofran) 4 mg IVPUSH Q6H PRN PRN Reason: Nausea/Vomiting Last Admin: 03/15/20 08:10 Dose: 4 mg Documented by: Ondansetron HCl (Zofran) 4 mg IVPUSH ONETIME ONE Stop: 03/14/20 11:49 Last Admin: 03/14/20 11:53 Dose: 4 mg Documented by: Ondansetron HCl (Zofran Odt) 4 mg PO Q6H PRN PRN Reason: Nausea/Vomiting Last Admin: 03/16/20 17:24 Dose: 4 mg Documented by: Oxycodone/Acetaminophen (Percocet 325-5 Mg) 1 - 2 tab PO Q4H PRN PRN Reason: Pain (moderate 4-6) Last Admin: 03/14/20 12:44 Dose: 2 tab Documented by: Povidone Iodine (Betadine 10% Soln) Confirm Administered Dose 1 ml .ROUTE .STK- MED ONE Stop: 03/14/20 06:55 Povidone Iodine (Betadine 10% Soln) Confirm Administered Dose 1 ml .ROUTE .STK- MED ONE Stop: 03/14/20 06:56 Last Admin: 03/14/20 10:14 Dose: 30 ml Documented by: Propofol (Diprivan 20 Ml) Confirm Administered Dose 200 mg .ROUTE .STK-MED ONE Stop: 03/14/20 07:24 Propofol (Diprivan 20 Ml) Confirm Administered Dose 200 mg .ROUTE .STK-MED ONE Stop: 03/14/20 08:34 Propofol (Diprivan 20 Ml) Confirm Administered Dose 200 mg .ROUTE .STK-MED ONE Stop: 03/14/20 09:10 Propofol (Diprivan 20 Ml) Confirm Administered Dose 200 mg .ROUTE .STK-MED ONE Stop: 03/14/20 09:45 Propofol (Diprivan 20 Ml) Confirm Administered Dose 200 mg .ROUTE .STK-MED ONE Stop: 03/14/20 10:20 Tramadol HCl (Ultram) 100 mg PO Q8H PRN PRN Reason: Pain (severe 7-10) Last Admin: 03/16/20 10:41 Dose: 100 mg Documented by: Tramadol HCl (Ultram) 100 mg PO Q4H PRN PRN Reason: Pain (mild 1-3)
== END 2020-03-17 13:30 | disposition home or self-care (01) | DRG 468 ==
LOC: JP.SDSSCHI 06:07 → JP.SDS 06:07 → EDSTATUS 07:30 → JP.MS 11:08
PROVIDERS: ADMIT Specialist; ATTEND Specialist
PROC: 0SPC0LZ Removal of Medial Unicondylar Synthetic Substitute from Right Knee Joint, Open Approach (ICD-10-PCS; principal; 2020-03-14)
PROC: 0SRC0J9 Replacement of Right Knee Joint with Synthetic Substitute, Cemented, Open Approach (ICD-10-PCS; 2020-03-14)
DX: T84.032A Mechanical loosening of internal right knee prosthetic joint, initial encounter (principal); Y83.8 Other surgical procedures as the cause of abnormal reaction of the patient, or of later complication, without mention of misadventure at the time of the procedure; Z79.899 Other long term (current) drug therapy; Z88.1 Allergy status to other antibiotic agents
CPT/HCPCS: 36415; 73560-26-RT; 73560-RT; 80053; 85027; 86850; 86900; 86901; 94762; 97110-GP; 97161-GP; 97530-GP; A9270-GY; C1713; C1776; J0690; J1170; J1650; J1885; J2175; J2250; J2405; J2550; J2704; J3010; J7030; J7050; J7120

== ENCOUNTER 2021-11-19 13:48 | Emergency (ER) | payer MEDICAID ==
[2021-11-19] MEDS ORDERED: Ondansetron 4 MG/2 ML SDV IVPUSH ONE (14:26)
[2021-11-19] MEDS ORDERED: Meperidine PF 50 MG/ML Syringe IVPUSH ONE (14:26)
[2021-11-19] MEDS ORDERED: Sodium Chloride 0.9% 1,000 ML IV SCH ×2 (14:30→15:45)
[2021-11-19 19:06] VITALS: BP 102/64; PULSE 58
== END 2021-11-19 19:20 | disposition home or self-care (01) ==
LOC: JP.ED 13:48
DX: G97.1 Other reaction to spinal and lumbar puncture (principal); E66.9 Obesity, unspecified; Z88.5 Allergy status to narcotic agent; Z88.2 Allergy status to sulfonamides; Z88.0 Allergy status to penicillin; Z68.30 Body mass index [BMI] 30.0-30.9, adult
CPT/HCPCS: 96374; 96375; 99282; 99283-25; J2175; J2405; J7030

== ENCOUNTER → 2022-05-19 | Day surgery (SDC) | payer MEDICAID ==
[~2022-05-19] MED LIST changes: +Bupivacaine 0.5% 30 ML SDV ONE; +Dexamethasone 4 MG/ML SDV ONE; +Glycopyrrolate 0.2 MG/ML 5 ML MDV ONE; +Lactated Ringers 1,000 ML IV SCH; +Neostigmine Methylsulfate 1 MG/ML 5 ML Syringe ONE; +Nozin Nasal Sanitizer NASBOTH ONE; +Ondansetron 4 MG/2 ML SDV ONE; -Povidone-Iodine 10% Soln 118.25 ML Bottle ONE; +Propofol 200 MG/20 ML SDV ONE; +Rocuronium 50 MG/5 ML Vial ONE; +Succinylcholine 200 MG/10 ML MDV ONE; +ceFAZolin 2 GM in Sodium Chloride 0.9% 50 ML IV ONE; +ePHEDrine 50 MG/ML SDV ONE; +fentaNYL 250 MCG/5 ML SDV ONE
[2022-06-14 22:09] LABS: ESTIMATED GFR 74 mL/min (>60)
== END ==
LOC: JP.SDS 06:00
PROVIDERS: ATTEND Specialist
DX: M65.861 Other synovitis and tenosynovitis, right lower leg (principal); M25.861 Other specified joint disorders, right knee; E66.9 Obesity, unspecified; M17.11 Unilateral primary osteoarthritis, right knee; Z96.651 Presence of right artificial knee joint; Z98.890 Other specified postprocedural states; Z90.49 Acquired absence of other specified parts of digestive tract; Z79.899 Other long term (current) drug therapy; Z88.2 Allergy status to sulfonamides; Z88.6 Allergy status to analgesic agent; Z88.1 Allergy status to other antibiotic agents; Z88.5 Allergy status to narcotic agent; Z88.0 Allergy status to penicillin
CPT/HCPCS: 29875; 36415; 80053; 85027; A9270; J0690; J1100; J2405; J2704; J3010; J3490; J7120; J0330; J2710